=== PATIENT | female | born 1950 | race Caucasian/White ===

== ENCOUNTER 2022-07-23 14:37 | Emergency (ER) | payer MEDICARE, SELFPAY ==
[2022-07-23 14:48] VITALS: BP 190/93; PULSE 78; RESP 18; TEMP 36.9; O2SAT 97; BMI 32.3
--- NOTE | 2022-07-23 15:06 | ED.FALL ---
HPI - Fall General Chief Complaint: Fall Stated Complaint: fall Time Seen by Provider: 07/23/22 14:50 Source: patient and family Mode of arrival: ambulatory Limitations: no limitations History of Present Illness HPI Narrative: 72-year-old female here with complaints of headache, nausea, dizziness after fall with head strike early this morning. Patient reports she tripped hitting the left side of the face on the ground. No loss of consciousness. She reports she was able to get up and this morning when she woke up she noticed some swelling around her eye as well as complaining of some headache, nausea and dizziness. She denies any AC therapy use. She believes that she may have tripped because she had several alcoholic beverages. She denies any symptoms of dizziness, chest pain, shortness of breath, palpitations, headache before the fall. Patient denies any vision changes. No chest or abdominal pain. No neck pain. Related Data Allergies Allergy/AdvReac Type Severity Reaction Status Date / Time Unable to Assess Allergy Verified 07/23/22 15:04 Review of Systems Review of Systems: Yes all other systems are reviewed and are negative Constitutional: Constitutional: Reports no additional constitutional complaints, Denies body ache(s), Denies chills, Denies fever(s), Reports headache(s) and Denies weakness Eyes: Eyes: Reports no additional eye complaints and Denies change in vision ENT: Reports system reviewed and no additional complaints, except as documented, Reports dizziness, Reports headache(s), Denies nasal congestion, Denies nasal discharge and Denies neck pain Cardiovascular: Cardiovascular: Reports no additional cardiovascular complaints, Denies chest pain, Denies leg edema and Denies dyspnea Respiratory: Respiratory: Reports no additional respiratory complaints, Denies cough and Denies dyspnea Gastrointestinal: Gastrointestinal: Reports no additional gastrointestinal complaints, Denies abdominal pain, Denies diarrhea, Reports nausea and Denies vomiting Genitourinary: Genitourinary: Reports no additional female genitourinary complaints and Denies urinary incontinence Musculoskeletal: Musculoskeletal: Reports no additional musculoskeletal complaints, Denies back pain, Denies arthralgias, Denies joint swelling, Denies neck pain, Denies numbness and Denies tingling Integumentary/Breasts: Skin/Breast: Reports system reviewed and no additional complaints, except as docu and Denies rash Neurologic: Reports system reviewed and no additional complaints, except as documented, Denies Abnormal speech present, Reports dizziness, Reports headache(s), Denies numbness, Denies tingling and Denies weakness PMFSH Past Medical History Attestation statement: The following information was validated with the patient. Source: old records reviewed and nursing notes reviewed Social History Social History Advance Directives: No Advance Directives Information Provided: Yes Physical Exam Vital Signs: Vital Signs: Last Vital Signs Temp 97.5 F 07/23/22 19:22 Pulse 82 07/23/22 19:22 Resp 20 07/23/22 19:22 BP 172/91 H 07/23/22 19:22 Pulse Ox 97 07/23/22 19:22 O2 Del Method 07/23/22 19:22 BMI result Body Mass Index 32.3 Const: General: cooperative, healthy appearing, comfortable and no acute distress Orientation/consciousness: patient oriented x3 Limitations: no limitations HEENT: Head: Yes normal to inspection, No Lacy's sign and No raccoon eyes Ears: hearing grossly normal bilaterally and TM's normal bilaterally General nose exam: Normal external nose present Face and sinus: Yes normal facial exam Mouth: Normal oral and palatal mucosa present Throat: Yes posterior oropharynx normal Eyes: Other: There is tenderness over the bony prominences of the orbit, bridge of the nose, left maxillary area. There is periorbital ecchymosis and swelling around the left eye. There is conjunctival and scleral injection EOM is intact patient has pain with lateral eye movement. General: appearance normal, both eyes and all related structures Visual Quinonez: normal visual quinonez by confrontation Corneas: corneas normal Pupils: Equal, round and reactive pupils present EOM: EOMs intact bilaterally Direct Ophthalmoscopy: normal light reflex and no photophobia Neck: Other: No midline tenderness, step-offs deformities Neck: Yes normal visual inspection, Yes full ROM, Yes no lymphadenopathy and Yes no meningeal signs Chest: Chest palpation & inspection: normal inspection of the chest Resp: Effort & Inspection: normal respiratory effort Auscultation: clear to auscultation bilaterally Cardio: Rate: regular rate Rhythm: regular rhythm Peripheral pulses: Peripheral pulses 2+ throughout GI: Inspection: Yes normal to inspection Palpation (GI): Soft to palpation and nontender Auscultation: normal bowel sounds Back/Spine/Pelvis: Thoracic/Lumbar Spine: thoracic and lumbar spine normal to inspection Skin: General skin exam: no rashes or lesions noted Neuro: General: patient oriented x3, no meningeal signs, no focal motor deficits and normal sensation to monofilament Cranial nerves: Yes CN's II-XII intact bilaterally, Yes Equal, round and reactive pupils present, Yes Bilaterally intact EOM present, Yes Nystagmus not present, Yes Normal facial strength present and Yes Midline tongue present Cognition (Neuro): normal cognition Speech: No Abnormal speech present Gait exam (Neuro): Normal gait present Motor exam (neuro): 5/5 motor strength present throughout Sensory Exam: Normal double simultaneous stimulation for sensation Extrem: General: Yes normal to inspection Course Course Course Narrative: Spoke to transfer line at [facility]. They do have OMF call but they are not willing to provide phone consultation. I did speak to the trauma surgeon who is on-call. Recommended transferred to ER for OMF consultation in the emergency room. Spoke to the ED attending Lisandra Bourgeois who accepted transfer. Medications Administered Discontinued Medications Generic Name Dose Route Start Last Admin Trade Name Jonathanq PRN Reason Stop Dose Admin Acetaminophen 975 mg 07/23/22 15:05 07/23/22 16:05 Acetaminophen 325 Mg Tablet PO 07/23/22 15:06 975 mg ONCE ONE Administration Ondansetron HCl 4 mg 07/23/22 15:05 07/23/22 16:05 Ondansetron Odt 4 Mg Tab.Rapdis TRANSLINGU 07/23/22 15:06 4 mg ONCE ONE Administration Medical Decision Making Medical Decision Making [facility] Narrative: 72-year-old female here with trip and fall last night with head strike with sub 2nd swelling around the left periorbital area, headache, nausea and dizziness. On arrival normal neuro exam. No visual complaints. There is periorbital swelling and ecchymosis as well as conjunctival and scleral injection. PERRLA. EOM is intact. No signs of entrapment. No visual field deficit. Due to age will check CT head, facial bones, cervical spine. Differential Diagnosis Differential Diagnoses: The differential diagnosis associated with the presentation includes Contusion, orbital fracture, intracranial hemorrhage Admission/Observation Consideration of admission/observation: Escalation of care including admission/observation considered CT of the maxillofacial area shows a left orbital floor fracture without significant herniation of fat with thickening of the inferior rectus muscle noted. No entrapment noted on exam. Not consistent with globe rupture. Patient likely would need OMF follow-up outpatient. OMF not available here for consultation. See course for further intervention. Sent to [facility] for OMF consult. Lab Data Labs: Lab Results 07/23/22 Range/Units 17:53 COVID-19 (ANAID) Negative (Negative) COVID-19 Clin Com See Note Radiology Impression Discussion of test interpretation with radiology: I have reviewed the radiologist's reading. Radiologist Impression: IMPRESSION: CT head: 1. There are no acute bleeds or territorial infarcts. No masses are demonstrated. 2. There are chronic microvascular ischemic changes and there is diffuse volume loss. ? CT maxillofacial: 1. There is a fracture of the floor of the left orbit without significant herniation of fat, but the inferior rectus muscle on the left is thickened compared to the right. 2. The right maxillary sinus contains blood and fluid and aerosolized secretions. 3. There is soft tissue swelling in the left malar region extending to the left periorbital area with hyperdense areas in the subcutaneous fat consistent with hematomas. 4. There is an equivocal fracture at the base of the left nasal bone. ? CT cervical spine: 1. There are no acute fractures or subluxations. 2. There is multilevel spondylosis and facet arthropathy. 3. There is an area of low attenuation in the posterior base of dens with a sclerotic rim which is nonspecific. 4. The paraspinal soft tissues are unremarkable. Critical Care Time Critical Care Time Critical Care Time: Yes Total Critical Care Time: 30 Attestation: Facial fracture requiring transfer to tertiary care center for further consultation Discharge Plan Discharge Clinical Impression: Fracture of orbital floor, Closed fracture nasal bone Patient Disposition: General Acute Hospital Transfer Details: [facility]
--- NOTE | 2022-07-23 17:37 | MHC.EDTECH ---
@1732 CALL PLACED TO [facility] PT TX LINE @ [employer] VICE PRESIDENT ANTHONY REQUEST FOR TRAUMATIC FALL EUGENIE ANSWERS, TAKES PT INFO AND CALL BACK NUMBER, THEN STATES SHE WILL CALL BACK WITH TRAUMA ON THE LINE @ [phone] ROMI CALLS BACK FROM [facility] PT TX LINE AND ASKS TO SPEAK WITH LAURA CRUZ TAKES OVER CALL RIGHT AWAY
[2022-07-23 18:11] LABS: COVID-19 Test Negative (Negative); IDNOW Serial# 16C4AD1C
[2022-07-23 19:22] VITALS: BP 172/91; PULSE 82; RESP 20; TEMP 36.4; O2SAT 97
== END 2022-07-23 19:50 | disposition short-term general hospital (02) ==
PROVIDERS: Nurse Practitioner Family; Emergency Provider Internal Medicine; PCP Internal Medicine
DX: S02.32XA Fracture of orbital floor, left side, initial encounter for closed fracture (principal); H57.12 Ocular pain, left eye; M54.2 Cervicalgia; R51.9 Headache, unspecified; W01.10XA Fall on same level from slipping, tripping and stumbling with subsequent striking against unspecified object, initial encounter; Y93.9 Activity, unspecified; Y92.9 Unspecified place or not applicable; Y99.9 Unspecified external cause status; Z20.822 Contact with and (suspected) exposure to COVID-19; Z79.899 Other long term (current) drug therapy
CPT/HCPCS: 70450; 70486; 72125; 87635; 99283